=== PATIENT | female | born 1995 | race Caucasian/White ===

== ENCOUNTER 2019-06-21 15:28 | Emergency (ER) | payer BC, OTHER ==
[~2019-06-21] VITALS: Ht 157.5 cm; Wt 65.2 kg
[~2019-06-21 15:28] MED LIST: IBUP-1542 PO; LORA1TAB PO
[2019-06-21 15:32] VITALS: BP 147/81; PULSE 125; RESP 20; Ht 157.5 cm; Wt 65.2 kg
[2019-06-21] MEDS ORDERED: LORAZEPAM 2 MG INJ IM ONE (16:00)
[2019-06-21] MEDS ORDERED: LORAZEPAM 1 MG TAB PO ONE (16:00)
--- NOTE | 2019-06-21 17:07 | ERD ---
ER Documentation Chief Complaint Chief Complaint SOB/shakiness x4 days s/p smoking vape. used albuterol today. no asthma HPI 23-year-old female presents feeling short of breath and shaky after smoking her vape pen. This is been going on intermittently for the past 4 days. She has no history of asthma but when this happened she used her friend's inhaler and she did state helped a little bit. No cough or fever. ROS All systems reviewed and are negative except as per history of present illness. Medications Home Meds Active Scripts Lorazepam* (Lorazepam*) 1 Mg Tablet, 1 MG PO Q8, #10 TAB Prov:CHUCK LEBRON PA-C 06/21/19 Ibuprofen* (Motrin*) 600 Mg Tab, 600 MG PO Q6H PRN for PAIN AND OR ELEVATED TEMP, #30 TAB Prov:ZENAIDA AMBROSIO LEGAL INSTRUCTOR 01/21/16 Reported Medications [none] Unknown Strength No Conflict Check 01/21/16 Allergies Allergies: Coded Allergies: No Known Allergy (Unverified , 06/21/19) PMhx/Soc Medical and Surgical Hx: pt denies Medical Hx, pt denies Surgical Hx History of Surgery: No Hx Alcohol Use: No Hx Substance Use: No Hx Tobacco Use: No Smoking Status: Current every day smoker FmHx Family History: No diabetes Physical Exam Vitals Vital Signs Date Temp Pulse Resp B/P (MAP) Pulse Ox O2 O2 Flow FiO2 Time Delivery Rate 06/21/19 100.0 125 20 147/81 100 15:32 (103) Physical Exam INITIAL VITAL SIGNS: Reviewed by me GENERAL: Awake, alert and oriented x 4, well appearing, nontoxic, speaking in full sentences. No acute distress RESPIRATORY: Clear to auscultation bilaterally. Symmetric chest wall rise. No wheezing or rales. No accessory muscle use. CV: Regular rate and rhythm. No murmurs, rubs, or gallops. ABDOMEN: Soft, non-distended. Nontender. Negative Bea[place]ont. Negative McBurneys point tenderness. No CVA tenderness bilaterally. No guarding. No rebound. Results 24 hrs Current Medications Medications Dose Sig/Owen Start Time Status Last (Trade) Ordered Route PRN Stop Time Admin Dose Reason Admin Lorazepam 1 mg ONCE ONCE 06/21/19 Cancel (Ativan) IM 16:00 06/21/19 16:01 Lorazepam 1 mg ONCE ONCE 06/21/19 DC 06/21/19 (Ativan) PO 16:00 15:51 06/21/19 16:01 Procedures/MDM Patient has shortness of breath. Likely an anxiety reaction. She was given Ativan with improvement. Discharged with a small amount of Ativan. Patient counseled regarding my diagnostic impression and care plan. Prior to discharge all questions answered. Pt agrees with treatment plan and understands strict return precautions. Pt is instructed to follow up with primary care provider within 24-48 hours. Precautionary instructions provided including instructions to return to the ER if not improving or for any worsening or changing symptoms or concerns. Departure Diagnosis: Primary Impression: Shortness of breath Condition: Stable Patient Instructions: Coping with Shortness of Breath: Controlling Stress Additional Instructions: Call your primary care doctor TOMORROW for an appointment during the next 1-2 days.See the doctor sooner or return here if your condition worsens before your appointment time. CHUCK LEBRON PA-C Jun 21, 2019 17:07
== END 2019-06-21 17:09 | disposition home or self-care (01) ==
LOC: FTE 15:28
DX: R06.02 Shortness of breath (principal); F17.210 Nicotine dependence, cigarettes, uncomplicated
CPT/HCPCS: Z7502; Z7610; 99283; J2060